=== PATIENT | male | born 1935 | race Caucasian/White ===

== ENCOUNTER 2021-03-12 12:29 | Inpatient (IN) | payer MEDICARE ==
[2021-03-12] MEDS ORDERED: Ondansetron ODT 4 MG TAB PO PRN (15:17)
[2021-03-12] MEDS ORDERED: Acetaminophen 500 MG TAB PO PRN (15:17)
[2021-03-12] MEDS ORDERED: Senokot S 8.6-50 MG TAB PO PRN (15:17)
[2021-03-12] MEDS ORDERED: Warfarin Sodium 2.5 MG TAB PO SCH (17:00)
[2021-03-12] MEDS ORDERED: traMADol HCl 50 MG TAB PO PRN (17:02)
[2021-03-12] MEDS ORDERED: Cefdinir 300 MG CAP PO SCH (21:00)
[2021-03-12] MEDS ORDERED: Finasteride 5 MG TAB PO SCH (21:00)
[2021-03-13 06:39] LABS: Anion Gap 16 mmol/L (10-20); BUN (Urea Nitrogen) 41 mg/dL (8.4-25.7); Calc. Creatinine Clearance 38 mL/min (70-130); Calcium 8.4 mg/dL (7.8-10.44); Carbon Dioxide 23 mmol/L (23-31); Chloride 103 mmol/L (98-107); Glucose 260 mg/dL (83-110); Potassium 3.5 mmol/L (3.5-5.1); Sodium 138 mmol/L (136-145)
[2021-03-13 06:40] LABS: INR-International Normal Ratio 2.2; Prothrombin Time 25.2 sec (12.0-14.7)
[2021-03-13] MEDS ORDERED: glipiZIDE 5 MG TAB PO SCH (07:30)
[2021-03-13] MEDS ORDERED: Ascorbic Acid 500 mg Chewable Tablet PO SCH (09:00)
[2021-03-13] MEDS ORDERED: PHOS-NAK 1 PKT PACK PO SCH (09:00)
[2021-03-13] MEDS ORDERED: Atorvastatin Calcium 20 MG TAB PO SCH (09:00)
[2021-03-13] MEDS ORDERED: Zinc Sulfate 220 MG CAP PO SCH (09:00)
[2021-03-13] MEDS ORDERED: Dextrose 50% Abboject 50 ML SYRINGE SLOW IVP PRN (09:08)
[2021-03-13] MEDS: HumaLOG 300 UNITS/3 ML VIAL SC PRN ×2 (12:06→17:40)
[2021-03-13] MEDS ORDERED: traMADol HCl 50 MG TAB PO PRN (13:33)
[2021-03-13 16:59] VITALS: BP 155/74; TEMP 98
[2021-03-13] MEDS ORDERED: Warfarin Sodium 2.5 MG TAB PO SCH (17:00)
[2021-03-13 19:13] LABS: #Lymphocytes 0.5 thou/uL (1.20-3.40); #Monocytes 0.4 thou/uL (0.11-0.59); #Neutrophils 7.3 thou/uL (1.40-6.50); %Basophils 0.3 % (0.0-1.0); %Eosinophils 0.2 % (0.0-10.0); %Lymphocytes 6.6 % (21.0-51.0); %Monocytes 4.8 % (0.0-10.0); %Neutrophils 88.1 % (42.0-75.0); Hemoglobin 13.2 g/dL (14.0-18.0); Mean Corpuscular HGB CONC 32.2 g/dL (32.0-36.0); Mean Corpuscular Hemoglobin 30.7 pg (27.0-31.0); Mean Corpuscular Volume 95.5 fL (78.0-98.0); Mean Platelet Volume 9.1 fL (7.4-10.4); Platelet Count 201 thou/uL (130-400); RBC Distribution Width 11.8 % (11.5-14.5); Red Blood Cell (RBC) Count 4.31 mill/uL (4.70-6.10); White Blood Cell (WBC) Count 8.3 thou/uL (4.8-10.8)
[2021-03-13 19:30] LABS: ALT (SGPT) 33 U/L (8-55); AST (SGOT) 31 U/L (5-34); Albumin 2.9 g/dL (3.4-4.8); Alkaline Phosphatase 87 U/L (40-110); Anion Gap 16 mmol/L (10-20); BUN (Urea Nitrogen) 41 mg/dL (8.4-25.7); Bilirubin, Total 0.7 mg/dL (0.2-1.2); Calc. Creatinine Clearance 35 mL/min (70-130); Calcium 8.3 mg/dL (7.8-10.44); Carbon Dioxide 22 mmol/L (23-31); Chloride 101 mmol/L (98-107); Globulin 3.2 g/dL (2.4-3.5); Glucose 405 mg/dL (83-110); Potassium 3.3 mmol/L (3.5-5.1); Protein, Total 6.1 g/dL (5.8-8.1); Sodium 136 mmol/L (136-145)
[2021-03-13 19:32] LABS: Troponin I 0.024 ng/mL (< 0.028)
== END 2021-03-13 19:40 | disposition short-term general hospital (02) | DRG 682 ==
LOC: UNDOADMIN 15:18 → NAV ACUTE 15:18
PROVIDERS: ADMIT Family Medicine; ATTEND Family Medicine
DX: N17.9 Acute kidney failure, unspecified (principal); U07.1 COVID-19; G92.8 Other toxic encephalopathy; J18.9 Pneumonia, unspecified organism; M62.82 Rhabdomyolysis; G30.9 Alzheimer's disease, unspecified; F02.80 Dementia in other diseases classified elsewhere, unspecified severity, without behavioral disturbance, psychotic disturbance, mood disturbance, and anxiety; I48.0 Paroxysmal atrial fibrillation; I10 Essential (primary) hypertension; E78.5 Hyperlipidemia, unspecified; G89.29 Other chronic pain; E87.6 Hypokalemia; R53.81 Other malaise; E11.65 Type 2 diabetes mellitus with hyperglycemia; T38.0X5A Adverse effect of glucocorticoids and synthetic analogues, initial encounter; M54.9 Dorsalgia, unspecified; Z89.511 Acquired absence of right leg below knee; Z88.8 Allergy status to other drugs, medicaments and biological substances; Z79.01 Long term (current) use of anticoagulants; Z79.899 Other long term (current) drug therapy; Z85.46 Personal history of malignant neoplasm of prostate; Z98.890 Other specified postprocedural states; Z87.891 Personal history of nicotine dependence
CPT/HCPCS: 36416; 70450; 80048; 84484; 85025; 85610; 36415-59; J1815

== ENCOUNTER 2021-03-13 19:30 | Emergency (ER) | payer MEDICARE | END 2021-03-13 22:50 | disposition short-term general hospital (02) | LOC: NAV ERS 19:30 | DX: U07.1 COVID-19 (principal); R41.0 Disorientation, unspecified; F03.90 Unspecified dementia, unspecified severity, without behavioral disturbance, psychotic disturbance, mood disturbance, and anxiety; R94.31 Abnormal electrocardiogram [ECG] [EKG]; I25.2 Old myocardial infarction; I48.91 Unspecified atrial fibrillation; E11.9 Type 2 diabetes mellitus without complications; Z87.891 Personal history of nicotine dependence; Z79.899 Other long term (current) drug therapy | CPT/HCPCS: 94760 ==

== ENCOUNTER 2021-03-17 08:28 | Inpatient (IN) | payer MEDICARE ==
[2021-03-17] MEDS ORDERED: Dextrose 50% Abboject 50 ML SYRINGE SLOW IVP PRN ×2 (14:14→16:57)
[2021-03-17] MEDS ORDERED: Ondansetron ODT 4 MG TAB PO PRN (14:14)
[2021-03-17] MEDS ORDERED: Senokot S 8.6-50 MG TAB PO PRN (14:14)
[2021-03-17] MEDS ORDERED: Acetaminophen 500 MG TAB PO PRN (14:14)
[2021-03-17] MEDS ORDERED: traMADol HCl 50 MG TAB PO PRN (14:21)
[2021-03-17] MEDS ORDERED: Warfarin Sodium 1.25 MG HALF.TAB PO SCH (17:00)
[2021-03-17] MEDS: HumaLOG 300 UNITS/3 ML VIAL SC PRN (20:58)
[2021-03-17] MEDS: Atorvastatin Calcium 20 MG TAB PO SCH (20:59)
[2021-03-17] MEDS: Finasteride 5 MG TAB PO SCH (21:00)
[2021-03-17] MEDS: Magnesium Oxide 400 MG TAB PO SCH (21:00)
[2021-03-18 07:15] LABS: INR-International Normal Ratio 1.9; Prothrombin Time 22.5 sec (12.0-14.7)
[2021-03-18 07:19] LABS: #Basophils 0.1 thou/uL (0.0-0.2); #Lymphocytes 0.8 thou/uL (1.20-3.40); #Monocytes 0.6 thou/uL (0.11-0.59); #Neutrophils 8.8 thou/uL (1.40-6.50); %Basophils 0.5 % (0.0-1.0); %Eosinophils 0.4 % (0.0-10.0); %Lymphocytes 7.8 % (21.0-51.0); %Neutrophils 85.3 % (42.0-75.0); Mean Corpuscular HGB CONC 32.5 g/dL (32.0-36.0); Mean Corpuscular Hemoglobin 30.8 pg (27.0-31.0); Mean Corpuscular Volume 94.8 fL (78.0-98.0); Mean Platelet Volume 9.5 fL (7.4-10.4); Platelet Count 149 thou/uL (130-400); Red Blood Cell (RBC) Count 4.23 mill/uL (4.70-6.10); White Blood Cell (WBC) Count 10.4 thou/uL (4.8-10.8)
[2021-03-18 07:24] LABS: Anion Gap 15 mmol/L (10-20); BUN (Urea Nitrogen) 25 mg/dL (8.4-25.7); Calc. Creatinine Clearance 56 mL/min (70-130); Calcium 8.4 mg/dL (7.8-10.44); Carbon Dioxide 22 mmol/L (23-31); Chloride 107 mmol/L (98-107); Glucose 202 mg/dL (83-110); Magnesium 1.3 mg/dL (1.6-2.6); Potassium 3.8 mmol/L (3.5-5.1); Sodium 140 mmol/L (136-145)
[2021-03-18] MEDS: glipiZIDE 5 MG TAB PO SCH (07:50)
[2021-03-18] MEDS: Magnesium Oxide 400 MG TAB PO SCH ×2 (08:56→21:17)
[2021-03-18] MEDS: Ascorbic Acid 500 mg Chewable Tablet PO SCH (08:57)
[2021-03-18] MEDS: HumaLOG 300 UNITS/3 ML VIAL SC PRN ×3 (12:57→21:15)
[2021-03-18] MEDS: Warfarin Sodium 2 MG TAB PO SCH (17:51)
[2021-03-18] MEDS: Finasteride 5 MG TAB PO SCH (21:17)
[2021-03-18] MEDS: Atorvastatin Calcium 20 MG TAB PO SCH (21:17)
[2021-03-19 06:52] LABS: INR-International Normal Ratio 2.1; Prothrombin Time 24.3 sec (12.0-14.7)
[2021-03-19] MEDS: Ascorbic Acid 500 mg Chewable Tablet PO SCH (08:46)
[2021-03-19] MEDS: glipiZIDE 5 MG TAB PO SCH (08:46)
[2021-03-19] MEDS: Magnesium Oxide 400 MG TAB PO SCH ×2 (08:46→21:42)
[2021-03-19] MEDS: HumaLOG 300 UNITS/3 ML VIAL SC PRN ×2 (08:47→17:41)
[2021-03-19] MEDS: Warfarin Sodium 2 MG TAB PO SCH (17:41)
[2021-03-19] MEDS: Atorvastatin Calcium 20 MG TAB PO SCH (21:42)
[2021-03-19] MEDS: Finasteride 5 MG TAB PO SCH (21:43)
[2021-03-20 01:54] VITALS: BMI 25.4
[2021-03-20 06:44] LABS: Anion Gap 15 mmol/L (10-20); BUN (Urea Nitrogen) 23 mg/dL (8.4-25.7); Calc. Creatinine Clearance 59 mL/min (70-130); Calcium 8.6 mg/dL (7.8-10.44); Carbon Dioxide 21 mmol/L (23-31); Chloride 106 mmol/L (98-107); Glucose 165 mg/dL (83-110); INR-International Normal Ratio 2.4; Magnesium 1.5 mg/dL (1.6-2.6); Prothrombin Time 26.4 sec (12.0-14.7); Sodium 138 mmol/L (136-145)
[2021-03-20] MEDS: Ascorbic Acid 500 mg Chewable Tablet PO SCH (08:18)
[2021-03-20] MEDS: HumaLOG 300 UNITS/3 ML VIAL SC PRN (08:18)
[2021-03-20] MEDS: Magnesium Oxide 400 MG TAB PO SCH ×2 (08:19→21:39)
[2021-03-20] MEDS: glipiZIDE 5 MG TAB PO SCH (08:19)
[2021-03-20] MEDS: Warfarin Sodium 2 MG TAB PO SCH (17:52)
[2021-03-20] MEDS: Finasteride 5 MG TAB PO SCH (21:39)
[2021-03-20] MEDS: Atorvastatin Calcium 20 MG TAB PO SCH (21:39)
[2021-03-21 06:33] LABS: INR-International Normal Ratio 3.1; Prothrombin Time 32.4 sec (12.0-14.7)
[2021-03-21] MEDS: Magnesium Oxide 400 MG TAB PO SCH ×2 (09:44→21:37)
[2021-03-21] MEDS: Ascorbic Acid 500 mg Chewable Tablet PO SCH (09:44)
[2021-03-21] MEDS ORDERED: Ondansetron ODT 4 MG TAB SL PRN (11:15)
[2021-03-21] MEDS: Warfarin Sodium 3 MG TAB PO SCH (17:21)
[2021-03-21] MEDS: Finasteride 5 MG TAB PO SCH (21:37)
[2021-03-21] MEDS: Atorvastatin Calcium 20 MG TAB PO SCH (21:37)
[2021-03-22 07:50] LABS: Platelet Count 117 thou/uL (130-400)
[2021-03-22] MEDS: Ascorbic Acid 500 mg Chewable Tablet PO SCH (09:48)
[2021-03-22] MEDS: Magnesium Oxide 400 MG TAB PO SCH ×2 (09:48→21:08)
[2021-03-22] MEDS: Warfarin Sodium 3 MG TAB PO SCH (17:53)
[2021-03-22] MEDS: Atorvastatin Calcium 20 MG TAB PO SCH (21:08)
[2021-03-22] MEDS: Finasteride 5 MG TAB PO SCH (21:08)
[2021-03-23] MEDS: Ascorbic Acid 500 mg Chewable Tablet PO SCH (08:22)
[2021-03-23] MEDS: Magnesium Oxide 400 MG TAB PO SCH ×2 (08:23→21:20)
[2021-03-23 09:49] LABS: INR-International Normal Ratio 2.8
[2021-03-23] MEDS: HumaLOG 300 UNITS/3 ML VIAL SC PRN ×2 (13:44→18:07)
[2021-03-23] MEDS: Warfarin Sodium 3 MG TAB PO SCH (18:07)
[2021-03-23] MEDS: Finasteride 5 MG TAB PO SCH (21:20)
[2021-03-23] MEDS: Atorvastatin Calcium 20 MG TAB PO SCH (21:21)
[2021-03-24] MEDS: HumaLOG 300 UNITS/3 ML VIAL SC PRN ×3 (05:41→17:33)
[2021-03-24 07:24] LABS: Hemoglobin 12.7 g/dL (14.0-18.0); Platelet Count 125 thou/uL (130-400)
[2021-03-24 07:36] LABS: INR-International Normal Ratio 3.8
[2021-03-24] MEDS: Magnesium Oxide 400 MG TAB PO SCH ×2 (08:32→22:19)
[2021-03-24] MEDS: Ascorbic Acid 500 mg Chewable Tablet PO SCH (08:32)
[2021-03-24] MEDS: Atorvastatin Calcium 20 MG TAB PO SCH (22:20)
[2021-03-24] MEDS: Finasteride 5 MG TAB PO SCH (22:20)
[2021-03-25] MEDS: HumaLOG 300 UNITS/3 ML VIAL SC PRN (05:19)
[2021-03-25 06:23] LABS: INR-International Normal Ratio 3.1; Prothrombin Time 32.3 sec (12.0-14.7)
[2021-03-25 08:51] VITALS: BP 118/79; TEMP 98.1
[2021-03-25] MEDS: Ascorbic Acid 500 mg Chewable Tablet PO SCH (08:53)
[2021-03-25] MEDS: Magnesium Oxide 400 MG TAB PO SCH (08:54)
[2021-03-26] MEDS ORDERED: Warfarin Sodium 1 MG TAB PO SCH (17:00)
== END 2021-03-25 13:15 | disposition hospice, home (50) | DRG 948 ==
LOC: NAV ACUTE 14:37
PROVIDERS: ADMIT Family Medicine; ATTEND Family Medicine
DX: R53.81 Other malaise (principal); F03.90 Unspecified dementia, unspecified severity, without behavioral disturbance, psychotic disturbance, mood disturbance, and anxiety; I48.91 Unspecified atrial fibrillation; E78.5 Hyperlipidemia, unspecified; E11.51 Type 2 diabetes mellitus with diabetic peripheral angiopathy without gangrene; I10 Essential (primary) hypertension; E87.5 Hyperkalemia; E83.42 Hypomagnesemia; Z89.511 Acquired absence of right leg below knee; Z88.8 Allergy status to other drugs, medicaments and biological substances; Z79.899 Other long term (current) drug therapy; Z85.46 Personal history of malignant neoplasm of prostate; Z98.890 Other specified postprocedural states; Z86.16 Personal history of COVID-19
CPT/HCPCS: 36416; 80048; 83735; 85014; 85018; 85025; 85049; 85610; 36415-59; J1815